=== PATIENT | male | born 1990 | race African-American/Black ===

== ENCOUNTER 2022-03-18 19:04 | Emergency (ER) | payer SELFPAY ==
[~2022-03-18] VITALS: Ht 175.3 cm; Wt 97.6 kg
[2022-03-18] MEDS ORDERED: TETANUS, DIPHTHERIA, PERTUSSIS VAC/PF 0.5ML (>10YR OLD) IM ONE ×2 (20:45→22:00)
[2022-03-18] MEDS ORDERED: CLONIDINE 0.3MG TABLET PO ONE (20:45)
[2022-03-18] MEDS ORDERED: AMOXICILLIN/POTASSIUM CLAVULANATE 875/125MG TAB PO ONE (20:45)
[2022-03-18] MEDS ORDERED: IBUPROFEN 600MG TABLET PO ONE (20:45)
[2022-03-18 22:03] VITALS: BP 169/111
[2022-03-19] MEDS ORDERED: AMOX1TAB16 MT (00:24)
== END 2022-03-19 01:20 | disposition home or self-care (01) ==
LOC: ER 19:04
DX: S01.01XA Laceration without foreign body of scalp, initial encounter (principal); M79.644 Pain in right finger(s); S61.451A Open bite of right hand, initial encounter; Y04.1XXA Assault by human bite, initial encounter; Y00.XXXA Assault by blunt object, initial encounter; Y93.89 Activity, other specified; Y92.488 Other paved roadways as the place of occurrence of the external cause
CPT/HCPCS: 12002; 90471; 90715; 99284

== ENCOUNTER 2022-04-13 12:47 | Emergency (ER) | payer SELFPAY ==
[~2022-04-13] VITALS: Ht 175.3 cm; Wt 127.0 kg
[~2022-04-13 12:47] MED LIST: AMOX1TAB16 MT
[2022-04-13 13:18] VITALS: BP 147/112
== END 2022-04-13 15:44 | disposition home or self-care (01) ==
LOC: ER 12:47
DX: S01.01XD Laceration without foreign body of scalp, subsequent encounter (principal); X58.XXXD Exposure to other specified factors, subsequent encounter; I10 Essential (primary) hypertension
CPT/HCPCS: 99281; Z7610

== ENCOUNTER 2023-07-27 21:49 | Emergency (ER) | payer MEDICAID ==
[~2023-07-27] VITALS: Ht 175.3 cm; Wt 89.5 kg
[2023-07-27 22:26] VITALS: O2SAT 99
[2023-07-28 00:16] LABS: CLARITY URINE CLEAR (CLEAR); COLOR URINE YELLOW (YELLOW); GLUCOSE URINE 3+ (NEGATIVE); KETONES URINE 2+ (NEGATIVE); LEUKOCYTE ESTERASE URINE NEGATIVE (NEGATIVE); NITRITE URINE NEGATIVE (NEGATIVE); OCCULT BLOOD URINE TRACE (NEGATIVE); PH URINE 5.5 (4.5-8.0); PROTEIN URINE NEGATIVE (NEGATIVE); SPECIFIC GRAVITY URINE 1.037 (1.005-1.030); UROBILINOGEN URINE 0.2 E.U./dL (0.2-1.0)
[2023-07-28] MEDS ORDERED: SODIUM CHLORIDE 0.9% 1,000 ML IV ONE ×2 (00:45→02:30)
[2023-07-28 00:58] LABS: BASOPHILS % 0.5 % (0.0-2.0); DIFFERENTIAL COMMENT 0; EOSINOPHILS % 0.8 % (0.0-5.0); HEMATOCRIT. 45.9 % (42.0-52.0); HEMOGLOBIN. 15.3 g/dL (14.0-18.0); LYMPHOCYTES % 18.9 % (20.0-50.0); MEAN CORPUSCULAR HEMOGLOBIN 23.5 pg (28.0-32.0); MEAN CORPUSCULAR HGB CONC 33.3 g/dL (31.0-37.0); MEAN CORPUSCULAR VOLUME 70.8 fL (80.0-94.0); MEAN PLATELET VOLUME 10.9 fl (7.4-10.4); MONOCYTES % 6.8 % (2.0-8.0); PLATELET 179 x1000/uL (130-400); RED BLOOD CELL COUNT 6.49 mill/uL (4.7-6.1); RED CELL DISTRIBUTION WIDTH 12.8 % (11.6-14.6); WHITE BLOOD COUNT 14.9 x1000/uL (4.5-11.0)
[2023-07-28 01:54] LABS: ALANINE AMINOTRANSFERASE 51 IU/L (10-49); ALBUMIN 4.9 g/dL (3.2-4.8); ASPARTATE AMINOTRANSFERASE 42 IU/L (<34); BILIRUBIN TOTAL 0.5 mg/dL (0.1-1.0); CARBON DIOXIDE 24 mEq/L (21-32); CHLORIDE 89 mEq/L (98-107); CREATININE 1.5 mg/dL (0.6-1.3); PROTEIN TOTAL 7.3 g/dL (6.0-8.3); SODIUM 124 mEq/L (136-145); UREA NITROGEN BLOOD 22 mg/dL (9-23)
[2023-07-28 01:59] LABS: GLUCOSE 569 mg/dL (70-105)
[2023-07-28 02:24] LABS: SQUAMOUS EPITHELIAL CELL URINE FEW /lpf (RARE/1+)
[2023-07-28] MEDS ORDERED: INSULIN REGULAR (HUMULIN R) 300UNITS/3ML VIAL IV ONE ×2 (02:30→04:00)
[2023-07-28 02:32] LABS: BACTERIA URINE NONE SEEN; RBC URINE 0-2 /hpf (0-2); WBC URINE 0-2 /hpf (0-2)
[2023-07-28] MEDS ORDERED: METF-414 MT (02:52)
[2023-07-28 05:18] VITALS: BP 157/95; PULSE 102; RESP 20; TEMP 98.1
== END 2023-07-28 05:20 | disposition home or self-care (01) ==
LOC: ER 21:49
DX: E11.9 Type 2 diabetes mellitus without complications (principal); I10 Essential (primary) hypertension
CPT/HCPCS: 81003; 99284; 80053; 82010; 82962; 85025; 36415; 96361; 96374; 96376; J1815; J7030; Z7610